=== PATIENT | male | born 1950 | race Caucasian/White ===

== ENCOUNTER 2017-03-08 00:08 | Emergency (ER) | payer SELFPAY ==
[~2017-03-08] VITALS: Ht 177.8 cm; Wt 87.7 kg
[~2017-03-08 00:08] MED LIST: LORTA5 PO
[2017-03-08 00:14] VITALS: BP 144/102; PULSE 76; RESP 20; TEMP 98.9; O2SAT 98
[2017-03-08 00:32] VITALS: BP 144/102; PULSE 76; RESP 20; TEMP 98.9; O2SAT 98
[2017-03-08] MEDS: RESP: ALBUTEROL 2.5 MG/IPRATROPIUM 0.5 MG NEB (SCH) INH ×3 (00:45→01:02)
--- NOTE | 2017-03-08 01:01 | RADRPT ---
EXAM DATE/TIME: 03/08/2017 00:36 [place] COMPARISON: No previous studies available for comparison. INDICATIONS : Cough. MEDICAL HISTORY : Hypertension. SURGICAL HISTORY : None. ENCOUNTER: Initial ACUITY: 1 week PAIN SCORE: 3/10 LOCATION: Bilateral chest FINDINGS: The cardiac silhouette is normal in transverse diameter. The lungs are free of acute parenchymal opac ity. No effusions are identified. The aortic knob is prominent with tortuosity of the descending thor acic aorta. CONCLUSION: 1. No acute cardiopulmonary disease. Omid Jonas MD on March 08, 2017 at 0:59 Board Certified Radiologist. This report was verified electronically.
[2017-03-08] MEDS ORDERED: ZITH500T PO (01:50)
--- NOTE | 2017-03-08 01:51 | PD ---
HPI Chief Complaint: Cold / Flu Symptoms Time Seen by Provider: 00:17 Travel History International Travel<30 days: No Contact w/Intl Traveler<30days: No Traveled to known affect area: No History of Present Illness HPI The patient is a 66-year-old male that has had a cough with some wheezing for 2 days. He denies any fever. The cough is productive of green sputum. He does not have any shortness of breath or chest pain.He does not smoke. PFSH Past Medical History Blood Disorders: No Cancer: No Cardiovascular Problems: No Endocrine: No Gastrointestinal Disorders: Yes Genitourinary: No Immune Disorder: No Musculoskeletal: No Neurologic: No Reproductive: No Respiratory: No Influenza Vaccination: No Past Surgical History Cholecystectomy: Yes Social History Alcohol Use: No Tobacco Use: No Substance Use: No Allergies-Medications (Allergen,Severity, Reaction): Coded Allergies: No Known Allergies (Verified , 12/03/13) Reported Meds & Prescriptions Reported Meds & Active Scripts Active Reported Lortab 5/325 Tab (Hydrocodone-Acetaminophen) Acetaminophen 325/5 Hydrocodone Tab 1-2 Tab PO Q4H PRN Review of Systems Except as stated in HPI: all other systems reviewed are Neg Physical Exam Narrative GENERAL: The patient is alert, oriented 3 in no respiratory distress. His vital signs show blood pressure 144/102 but are otherwise normal. Oximetry is 98% on room air. His respirations are only 20. SKIN: Focused skin assessment warm/dry. HEAD: Atraumatic. Normocephalic. EYES: Pupils equal and round. No scleral icterus. No injection or drainage. ENT: No nasal bleeding or discharge. Mucous membranes pink and moist. NECK: Trachea midline. No JVD. CARDIOVASCULAR: Regular rate and rhythm. No murmur appreciated. RESPIRATORY: No accessory muscle use. Scattered wheezes are heard in all lung armenta. Breath sounds equal bilaterally. GASTROINTESTINAL: Abdomen soft, non-tender, nondistended. Hepatic and splenic margins not palpable. MUSCULOSKELETAL: No obvious deformities. No clubbing. No cyanosis. No edema. NEUROLOGICAL: Awake and alert. No obvious cranial nerve deficits. Motor grossly within normal limits. Normal speech. PSYCHIATRIC: Appropriate mood and affect; insight and judgment normal. Data Data Last Documented VS Vital Signs Date Time Temp Pulse Resp B/P (MAP) Pulse Ox O2 Delivery O2 Flow Rate FiO2 03/08/17 00:32 18 98 Room Air 03/08/17 00:32 98.9 76 144/102 (116) Orders Orders Chest, Pa & Lat (03/08/17 00:24) Albuterol-Ipratropium Neb (Duoneb Neb) (03/08/17 00:30) MDM Medical Decision Making Medical Screen Exam Complete: Yes Emergency Medical Condition: Yes Medical Record Reviewed: Yes Interpretation(s) The chest x-ray shows no acute cardiopulmonary disease. Differential Diagnosis Asthma, bronchitis, pneumonia, allergic reaction Narrative Course The patient appears to have bronchitis. This is likely viral but we will try Zithromax for 5 days to see if this helps him. He did not get any relief with the DuoNeb treatments. The airway obstruction was apparently fixed. Diagnosis Primary Impression: Bronchitis Additional Instructions: Follow-up with your primary care physician. This can get worse. The antibiotic is one tablet daily for 5 days. Med/Other Pt SpecificInfo: Prescription(s) given Scripts Azithromycin (Zithromax) 500 Mg Tab 500 MG PO DAILY for Infection for 5 Days, #5 TAB 0 Refills Prov: Son Trujillo MD 03/08/17 Disposition: DISCHARGE HOME Condition: Stable Son Trujillo MD Mar 08, 2017 01:51
[2017-03-08] MEDS ORDERED: AZITHROMYCIN 250 MG TAB PO ONE (02:00)
[2017-03-08 02:12] VITALS: BP 163/94
== END 2017-03-08 02:15 | disposition home or self-care (01) ==
LOC: PHED 00:08
DX: J40 Bronchitis, not specified as acute or chronic (principal); R06.2 Wheezing
CPT/HCPCS: 71020; 94640; 94664; 99284